=== PATIENT | female | born 1960 | race Caucasian/White ===

== ENCOUNTER 2017-02-06 20:00 | Inpatient (IN) | payer SELFPAY ==
[~2017-02-06] VITALS: Ht 152.4 cm; Wt 40.2 kg
[2017-02-06] MEDS ORDERED: HALOPERIDOL LACTATE 5 MG/ML 1 ML VIAL IM STA (21:23)
[2017-02-06] MEDS ORDERED: LORAZEPAM 2 MG/ML 1 ML VIAL IM STA (21:23)
[2017-02-06 21:55] LABS: PREG INTERNAL NEGATIVE QC NEG CLEAR BACKGROUND; PREG INTERNAL POSITIVE QC POS CONTROL LINE
[2017-02-06 22:17] LABS: BENZODIAZEPINE, URINE NEG (NEG); COCAINE,URINE NEG (NEG); PHENCYCLIDINE, URINE NEG (NEG)
[2017-02-06 22:47] LABS: MEAN CELL VOLUME 91.7 fL (80-100); MEAN CORPUSCULAR HEMOGLOBIN 32.3 pg (25-34); MEAN CORPUSCULAR HGB CONC 35.2 g/dl (32-36); MEAN PLATELET VOLUME 9.4 fL (7.4-10.4); PLATELET COUNT 270 K/uL (130-400); WHITE BLOOD COUNT 7.55 K/uL (4.8-10.8)
[2017-02-06 23:07] LABS: ALT/SGPT 23 U/L (12-78); BLOOD UREA NITROGEN 14 mg/dl (7-18); BUN/CREATININE RATIO 15.6 (10-20); CALCIUM 8.7 mg/dl (8.5-10.1); CARBON DIOXIDE 27 mmol/L (21-32); CHLORIDE 110 mmol/L (98-107); GLUCOSE 96 mg/dl (70-99); POTASSIUM 3.3 mmol/L (3.5-5.1); SODIUM 143 mmol/L (136-145)
[2017-02-06 23:08] LABS: ACETAMINOPHEN < 2 ug/ml (10-30)
[2017-02-06 23:18] LABS: ALKALINE PHOSPHATASE 76 U/L (45-117); AST/SGOT 18 U/L (15-37)
[2017-02-07] MEDS ORDERED: HALOPERIDOL LACTATE 5 MG/ML 1 ML VIAL ONE ×2 (00:12→12:49)
[2017-02-07] MEDS ORDERED: LORAZEPAM 2 MG/ML 1 ML VIAL ONE ×2 (00:12→12:48)
--- NOTE | 2017-02-07 01:33 | EMERGENCY ROOM VISIT NOTE ---
History Report prepared by Ti: Lien Ireland Under the Supervision of: Dr. Juan F Roger M.D. First contact with patient: 20:33 Chief Complaint: MENTAL HEALTH EVALUATION History of Present Illness The patient is a 56 year old female who presents to the Emergency Room with complaints of persistent abnormal behavior starting HEARING SCREENER. The patient was at the [facility] with the [employer] workers. They brought her to the ED because she was acting strangely and making strange statements, such as saying that she is a "black market baby" and that she was struck by lightning. The police were called because she did not want to enter the ED. She states that she is unsure why she was brought here and was under the impression that she was being taken to a new job. She reports that she has been coughing. She denies any fever. She denies any history of medical problems or mental health problems. She has had low iron in the past. She denies being . She reports that she has been applying horse penicillin to her teeth to prevent infection although she has no pain. She says she does this periodically. She denies any headache or chest pain or shortness of breath. She denies homicidal or suicidal ideation. Source of History: patient, nursing staff History Limited By: poor cooperation Onset: HEARING SCREENER Position: other (mental health) Quality: other (abnormal behavior) Timing: other (persistent) Associated Symptoms: + cough, No fevers Review of Systems Limited ROS secondary to poor cooperation. Past Medical & Surgical Medical Problems: (1) No significant past medical history Family History No pertinent family history stated. Social History Smoking Status: Current Every Day Smoker Current/Historical Medications Unable to Obtain Active Prescriptions or Reported Meds Physical Exam Vital Signs Date Time Temp Pulse Resp B/P (MAP) Pulse Ox O2 Delivery O2 Flow Rate FiO2 02/06/17 22:19 91 18 122/78 97 Room Air 02/06/17 20:17 37.0 96 18 139/79 97 Room Air Physical Exam Constitutional: Vital signs reviewed. Eyes: Pupils are equal round reactive to light. Conjunctiva are noninjected. ENT: Pharynx is clear without erythema or exudate. Mucous membranes are moist. Neck supple without meningeal signs. Respiratory: Clear to auscultation bilaterally. Breath sounds are equal bilaterally. Cardiovascular: Regular rate and rhythm. No rubs or gallops. GI: Soft, nondistended and nontender. Bowel sounds are present. Musculoskeletal: No peripheral edema. No lower extremity tenderness. Integumentary: No cyanosis. Neurological: The patient is awake and alert. No focal deficits. Psychiatric: Manic, tangential, poor insight, delusional, pressured speech, shouting at times. Medical Decision & Procedures Laboratory Results 02/06/17 22:31 02/06/17 22:31 Test 02/06/17 20:15 02/06/17 22:31 Urine Test NEG (NEG) Urine Opiates Screen NEG (NEG) Urine Methadone, Qualitative NEG (NEG) Urine Barbiturates NEG (NEG) Urine Phencyclidine (PCP) Level NEG (NEG) Ur Amphetamine/Methamphetamine NEG (NEG) MDMA (Ecstasy) Screen NEG (NEG) Urine Benzodiazepines Screen NEG (NEG) Urine Cocaine Metabolite NEG (NEG) Urine Marijuana (THC) NEG (NEG) Red Blood Count 4.80 M/uL (4.2-5.4) Mean Corpuscular Volume 91.7 fL (80-100) Mean Corpuscular Hemoglobin 32.3 pg (25-34) Mean Corpuscular Hemoglobin Concent 35.2 g/dl (32-36) RDW Standard Deviation 46.7 fL (36.4-46.3) RDW Coefficient of Variation 13.8 % (11.5-14.5) Mean Platelet Volume 9.4 fL (7.4-10.4) Anion Gap 6.0 mmol/L (3-11) Est Creatinine Clear Calc Drug Dose 49.5 ml/min Estimated GFR () 82.3 Estimated GFR (Non- 71.0 BUN/Creatinine Ratio 15.6 (10-20) Calcium Level 8.7 mg/dl (8.5-10.1) Total Bilirubin 0.2 mg/dl (0.2-1) Direct Bilirubin < 0.1 mg/dl (0-0.2) Aspartate Amino Transf (AST/SGOT) 18 U/L (15-37) Alanine Aminotransferase (ALT/SGPT) 23 U/L (12-78) Alkaline Phosphatase 76 U/L (45-117) Total Protein 7.1 gm/dl (6.4-8.2) Albumin 3.6 gm/dl (3.4-5.0) Thyroid Stimulating Hormone (TSH) 2.260 uIu/ml (0.300-4.500) Salicylates Level 4.1 mg/dl (2.8-20) Acetaminophen Level < 2 ug/ml (10-30) Ethyl Alcohol mg/dL < 3.0 mg/dl (0-3) Laboratory results as reviewed by me. ED Course 2044: The patient was evaluated in room A8. A complete history and physical exam was performed. 2117: I reevaluated the patient. She is becoming increasingly manic and uncooperative. I spoke to the [employer] people who say that they found her sleeping in a truck in [place] and brought her to [place] presumably to have her work here, but she became increasingly agitated so they brought her to the ED. 0011: The patient is refusing the chest x-ray and becoming more belligerent and throwing things around the room. The nurse will give Haldol and Ativan. 0058: The patient became more compliant when security came and did not require medication. She is currently sleeping. 0130: The patient was signed out to Dr. Anton at the end of my shift. Medical Decision This is a 56-year-old female brought in for mental health evaluation. I did perform a limited focused review of portions of the patient's old chart on the electronic medical record. The patient has had no prior visits. I did evaluate the patient as noted above. The patient is presenting with manic behavior. She is tangential with pressured speech. She appears delusional with poor insight and judgment. She apparently was found in the truck of the [employer] in [place] who then brought her here to [facility] for the [facility]. She has nowhere to live at this time. She states that if she left here she would get on the first truck and sell herself for sex. She is making bizarre statements about the FBI. She is aggressive at times. She was able to be calmed down verbally. I did order Haldol and Ativan but she did not require it as each time she would calm down to some degree. I did order and review the patient's blood work as noted in the electronic medical record. I did order a chest x-ray as the patient has been coughing. I cannot get further details about her cough and she is not cooperative. Her lungs are clear to auscultation bilaterally. She absolutely refused chest x- ray because of radiation exposure. We could not convince her to get a chest x- ray and she became very upset when asked again for the x-ray. She was therefore medically cleared and evaluated by mental health. The mental health workers felt that she does require inpatient psychiatric care. She would not sign in voluntarily and therefore a 302 petition was filled out. I did sign the 302 as I did feel she was severely mentally ill and required inpatient psychiatric care. She is currently waiting for bed placement. The patient was signed out to Dr. Anton. Medication Reconcilliation Current Medication List: was personally reviewed by me Blood Pressure Screening Patient's blood pressure: Elevated blood pressure Blood pressure disposition: Referred to PCP Impression Primary Impression: Thought disorder Additional Impression: Cough Scribe Attestation The scribe's documentation has been prepared under my direct and personally reviewed by me in its entirety. I confirm that the note above accurately reflects all work, treatment, procedures, and medical decision making performed by me. Departure Information Dispostion Still a Patient Prescriptions Unable to Obtain Active Prescriptions or Reported Meds Patient Instructions [facility] Problem Qualifiers
--- NOTE | 2017-02-07 02:58 | EMERGENCY ROOM VISIT NOTE ---
ED Visit Note First contact with patient: 02:04 This case was signed out to me at change of shift by Dr. Roger. We are currently awaiting bed placement. 0345: The bed search has been suspended. It'll resume in the morning. The patient is currently sleeping at this time. She does not take any routine medications. The case will be signed out to Dr. Toscano at change of shift this morning awaiting bed placement.
[2017-02-07] MEDS ORDERED: BISMUTH SUBSALICYLATE PER ML OMNICELL CHARGE PO PRN (12:15)
[2017-02-07] MEDS ORDERED: hydrOXYzine HCL 25 MG TAB PO PRN ×2 (12:15)
[2017-02-07] MEDS ORDERED: MAGNESIUM HYDROXIDE SUSP 30 ML UDC PO PRN (12:15)
[2017-02-07] MEDS ORDERED: HALOPERIDOL LACTATE 5 MG/ML 1 ML VIAL IM PRN (12:15)
[2017-02-07] MEDS ORDERED: ALUMINUM/MAGNESIUM SUSP 30 ML UDC PO PRN (12:15)
[2017-02-07] MEDS ORDERED: HALOPERIDOL 5 MG TAB PO PRN (12:15)
[2017-02-07] MEDS ORDERED: ACETAMINOPHEN 325 MG TAB PO PRN (12:15)
[2017-02-07] MEDS ORDERED: SODIUM CHLORIDE 0.65% NA SOLN 45 ML (OCEAN) PRN (12:15)
[2017-02-07 12:40] VITALS: O2SAT 98
--- NOTE | 2017-02-07 13:23 | Psychiatric History & Physical ---
History Date of Service Feb 07, 2017. Identifying Data Leana Wiggins is a 56-year-old female from [place] who was brought to the ED by [employer] workers because she was acting and talking bizarrely. She is admitted to our unit on a 302 involuntary commitment due to inability to care for herself due to psychosis. Chief Complaint "If you aint my family, you can just get out of here.". History of Present Illness The patient is a 56 yo female who was brought to the ER by the [employer] workers from the [facility] where she was saying bizarre things and behaving bizarrely. In the ER she refused all medications and was intermittantly agitated, swearing and throwing things. Upon being brought to our unit she refused to participate in an interview, was yelling swearing saying that the food in the ER was poisoned, that she wasn't going to take any medications. Her conversation was rambling and disjointed, talking about a daughter, needing to make money at the [facility]. She was throwing things at the guards and would not follow simple commands to calm down and so she was injected with Haldol 5 mg. and Ativan 1 mg. IM. We have no history other than the [employer] workers reported to the ED staff that they discovered her in one of their trucks at the [facility]. She agreed to work for them and so they took her with them to the [facility]. After they got there she was talking about being tracked by the [facility], being struck by lightening, and being (negative). When they brought her to the ED she refused to come in and was wandering in the parking lot, so the police were called and she was brought in on a 302 warrant. the patient was injected at 1250. She has been observed walking and talking in her room without difficulty. There is no evidence of injury. She remains angry , yelling toward the nurses station, saying we cannot keep her here. She only becomes more agitated if you approach her and so we are giving her some time and space to calm down. Past Psychiatric History Prior Psych Hospitalizations: none (unable to obtain due to agitation) Access to a Gun: No (None in belongings. Unable to determine beyond this due to agitation) Additional Notes Unable to obtain information due to agitation, paranoia Past Medical/Surgical History Unable to obtain due to condition Home Medications Unable to Obtain Active Prescriptions or Reported Meds Family History Unable to obtain due to agitation and condition Alcohol Use Alcohol Use In Past 12 Months: No Unable to obtain due to condition Smoking Use Smoking Status: Current Every Day Smoker Unable to obtain due to agitation and condition Personal History Lives in: [place] per reports Additional Comments: Unable to obtain due to condition Examination Physical Examination Exam performed by Dr. Roger in the ED last night has been reviewed and accepted as medical clearance for our unit. Vital Signs Vital Signs Past 12 Hours Date Time Temp Pulse Resp B/P (MAP) Pulse Ox O2 Delivery O2 Flow Rate FiO2 02/07/17 12:40 94 18 117/66 98 02/07/17 09:06 90 18 98/54 98 Room Air Laboratory Results Last 24 Hours Test 02/06/17 20:15 02/06/17 22:31 Urine Test NEG Urine Opiates Screen NEG Urine Methadone, Qualitative NEG Urine Barbiturates NEG Urine Phencyclidine (PCP) Level NEG Ur Amphetamine/Methamphetamine NEG MDMA (Ecstasy) Screen NEG Urine Benzodiazepines Screen NEG Urine Cocaine Metabolite NEG Urine Marijuana (THC) NEG White Blood Count 7.55 K/uL Red Blood Count 4.80 M/uL Hemoglobin 15.5 g/dL Hematocrit 44.0 % Mean Corpuscular Volume 91.7 fL Mean Corpuscular Hemoglobin 32.3 pg Mean Corpuscular Hemoglobin Concent 35.2 g/dl RDW Standard Deviation 46.7 fL RDW Coefficient of Variation 13.8 % Platelet Count 270 K/uL Mean Platelet Volume 9.4 fL Sodium Level 143 mmol/L Potassium Level 3.3 mmol/L Chloride Level 110 mmol/L Carbon Dioxide Level 27 mmol/L Anion Gap 6.0 mmol/L Blood Urea Nitrogen 14 mg/dl Creatinine 0.90 mg/dl Est Creatinine Clear Calc Drug Dose 49.5 ml/min Estimated GFR () 82.3 Estimated GFR (Non- 71.0 BUN/Creatinine Ratio 15.6 Random Glucose 96 mg/dl Calcium Level 8.7 mg/dl Total Bilirubin 0.2 mg/dl Direct Bilirubin < 0.1 mg/dl Aspartate Amino Transf (AST/SGOT) 18 U/L Alanine Aminotransferase (ALT/SGPT) 23 U/L Alkaline Phosphatase 76 U/L Total Protein 7.1 gm/dl Albumin 3.6 gm/dl Thyroid Stimulating Hormone (TSH) 2.260 uIu/ml Salicylates Level 4.1 mg/dl Acetaminophen Level < 2 ug/ml Ethyl Alcohol mg/dL < 3.0 mg/dl Mental Examination During interview pt is: uncooperative Appearance: disheveled Eye contact is: poor Motor behavior is: psychomotor agitation (agitation, yelling and throwing things) Speech: is pressured, loud Affect: angry Mood is: angry Thought process: tangential, incoherent Thought content: paranoid Hallucinations: other (does not appear to be responding to internal stimuli) Cognition: other (unable to assess due to agitation) Intelligence estimated to be: other (unable to assess) Insight: severely impaired Judgement: severely impaired Impression / Recommendations Impression 56 yo female, with unknown history, brought to the ED by the [facility] workers due to bizarre behaviors. We know she is from [place], but no med or psychiatric information available and the patient is agitated, paranoid and uncooperative. She required Haldol 5 mg. and Ativan 1 mg. IM due to out of control behaviors putting she and others at risk of harm. We will give her some time to calm down , allow the meds to work and attempt again to get some information. She is here on a 302, and will likely need a 303 which we will need to file for tomorrow, Thursday 02/08. Risk Factors Assessment : Yes Recommendations (1) Psychosis 02/07 - Q 15 min checks for safety - Excuse from group programming until able to be appropriate - Continue to try to obtain information from the patient or family members if we can identify one - She is here on a 302. We will need to file for a 303 tomorrow - Continue Haldol and ativan prn. Will also schedule 5 mg. HS tonight. - We are unable to obtain allergy information and so must be alert to any adverse reactions to meds - Reality orientation - CPT Code Initial Hospital Care: [id number]
[2017-02-07] MEDS ORDERED: PATIENT'S ALLERGY INFO NEEDS ENTERED SCH (13:30)
[2017-02-07] MEDS ORDERED: LORAZEPAM 2 MG/ML 1 ML VIAL IM PRN (13:30)
[2017-02-07 14:05] VITALS: BP 117/66; TEMP 37; BMI 21.5
--- NOTE | 2017-02-07 15:48 | EMERGENCY ROOM VISIT NOTE ---
ED Visit Note Patient signed out to me at change of shift by Dr. Marlen Rod History and physical verified by me. Patient was accepted by 3 S. without further incident.
[2017-02-07] MEDS ORDERED: HALOPERIDOL 5 MG TAB PO SCH (21:00)
--- NOTE | 2017-02-08 09:38 | Psychiatric Progress Notes ---
Progress Note Date of Service Feb 08, 2017. Interval History 56 yo female admit brought to ED 02/06 on 302 petition by police. 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 She was agitated in ED, throwing food at police and appeared quite disheveled and extremely thin (inability to care for self due to psychosis). Chief Complaint "hospitals are for people that break legs, your meds and food are poison". Subjective Patient was seen & assessed interval progress reviewed with Treatment Team. Received 1 dose of IMs as documented yesterday, unable to take PO Haldol last hs as sleeping for past 18 hours. Poor PO intake. This am she is resistant to care and refusing meals stating it is her right to fast and she won't reveal why as she has right under the FBI Information Act. 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 She purposely avoids eye contact. Review of Systems Patient is unable to complete due to her psychosis. Sleep Information Total Hours of Sleep: 16.50 Meal Information Percent of Dinner Consumed: 0 Mental Status Exam During interview pt is: uncooperative Appearance: disheveled Eye contact is: poor Motor behavior is: no abnormal motor movements Speech: is pressured, loud Affect: angry Mood is: angry Thought process: tangential, incoherent Thought content: paranoid, delusions Suicidal thought are: denied (but won't really answer/contract) Homicidal thoughts are: denied Hallucinations: other (does not appear to be responding to internal stimuli) Cognition: other (unable to assess due to agitation) Intelligence estimated to be: other (unable to assess) Insight: severely impaired Judgement: severely impaired Impression 56 yo female, with unknown history, brought to the ED by the [employer] due to bizarre behaviors. We know she is from [place], but no med or psychiatric information available and the patient is agitated, paranoid and uncooperative. She required Haldol 5 mg. and Ativan 1 mg. IM due to out of control behaviors putting she and others at risk of harm. Continued Inpatient Care Continued inpatient hospitalization is medically necessary for ongoing monitoring and safety on 302 involuntary commitment, 303 petition filed . A private room remains medically necessary for the safety of self and others given severity of psychosis. Plan (1) Psychosis 02/07 - Q 15 min checks for safety - Excuse from group programming until able to be appropriate - Continue to try to obtain information from the patient or family members if we can identify one - She is here on a 302. We will need to file for a 303 tomorrow - Continue Haldol and ativan prn. Will also schedule 5 mg. HS tonight. - We are unable to obtain allergy information and so must be alert to any adverse reactions to meds - Reality orientation 02/08 --unclear if disorganization solely psychotic disorder or driven by mixed aguilar. Needs close monitoring of I&O and additional labs in am. Will offer Zyprexa Zydis 5 mg this hs as dissolvable and may be easier to administer than PO Haldol. It is my medical opinion that the patient's psychosis is placing her at significant risk of within the next 30 days due to inability to eat (delusions she is being poisoned) and inability to care for self based on circumstances surrounding her hospitalization. If she continues to refuse psychiatric medications, it is medically necessary that meds be given over objection. Will ask Dr. Hess to provide 2nd opinion as covering provider on . 303 paperwork completed. Visit Code E&M Code: 16871 Risk Factors Assessment : Yes Data Vital Signs Last 24 Hrs: Date Time Temp Pulse Resp B/P (MAP) Pulse Ox O2 Delivery O2 Flow Rate FiO2 02/07/17 14:05 37.0 18 117/66 02/07/17 12:40 94 18 117/66 98 Meds Administered Last 24 Hrs: Meds Administered (Past 24Hrs) Medications (Trade) Dose Ordered Sig/Shilpa Route Start Time Stop Time Status Last Admin Dose Admin Haloperidol Lactate (Haldol Inj) 5 mg Q4 PRN IM 02/07/17 12:15 03/09/17 12:14 02/07/17 12:50 5 MG Lorazepam (Ativan Inj) 1 mg Q4H PRN IM 02/07/17 13:30 03/09/17 13:29 02/07/17 12:50 1 MG
[2017-02-08] MEDS ORDERED: BENZTROPINE MESYLATE 1 MG TAB PO PRN (09:45)
[2017-02-08] MEDS ORDERED: BENZTROPINE MESYLATE 1 MG/ML 2 ML AMP IM PRN (09:45)
[2017-02-08] MEDS ORDERED: LORAZEPAM 1 MG TAB PO PRN (09:45)
[2017-02-08] MEDS ORDERED: OLANZAPINE ZYDIS 5 MG ORALLY DIS. TAB PO PRN (10:15)
[2017-02-08 10:47] VITALS: BP 116/72; PULSE 74
[2017-02-08] MEDS ORDERED: OLANZAPINE ZYDIS 5 MG ORALLY DIS. TAB PO SCH (22:00)
[2017-02-09 07:02] VITALS: BP_SYST 117; BP_SYST 125; BP_DIAS 75; BP_DIAS 82; PULSE 62; PULSE 69; TEMP 36.6
[2017-02-09 07:09] VITALS: Ht 152.4 cm; Wt 40.2 kg
--- NOTE | 2017-02-09 07:55 | Psychiatric Progress Notes ---
Progress Note Date of Service Feb 09, 2017. Interval History 56 yo female admit brought to ED 02/06 on 302 petition by police. 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 She was agitated in ED, throwing food at police and appeared quite disheveled and extremely thin (inability to care for self due to psychosis). Chief Complaint "Are you the doctor? You're not my doctor, I got a friend got a lab at her house, I hang out with doctors and stuff". Subjective Patient was seen & assessed interval progress reviewed with Nursing. She slept 18 hours her first night in the hospital, after getting IMs of Haldol and Ativan for agitation and psychosis, and yesterday was awake, agitated and psychotic, paranoid, and refused medications and food at times. She was informed of the 303 hearing and did not appear to understand it. She did eat some yesterday, and was focused on food, at times saying it was poisoned. She was paranoid of peers, got agitated, and refused prn medications, but was eventually able to be redirected. Dr. Lopez saw her and recommended medications over objection. She is hyperverbal, nonsensical at times, talks about being struck by lightening, black market babies, and the FBI. She has not yet been able to provide any historical information or explain why she is in [place] or how she got here. Today, she was seen in her room, where she immediately became agitated, yelling and swearing. She is a very limited historian, is extremely tangential and angry. She refused her blood draw for lab work this morning, and when attempting to explain to her the reasons that this is needed (low potassium on admission and poor oral intake, refusing multiple meals since admission), she interrupts and screams "talking cares about my electrolytes!" She talks in a nonsensical fashion about having a friend who has a lab at her house, saying she'll get lab work done there, then talking about cousins with a $1 million home, and losing her things on the [employer] bus. She continues to refuse medications, and refuses to answer questions about her psychiatric history. 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 Explained that if she will not accept medication and cannot calm down, she may receive injectable medications. She continued to yell and started dumping all of her food in the garbage can, stating that she wasn't going to eat anything while she was here. She then came to the nurse's station yelling and demanding to be given sugar, stating "sugar calls me down, don't you know that? I have my own doctors!" Her case was reviewed with Dr. Lopez, and security was called to administer medications over objection if needed, and to allow the senior treasury analyst to draw blood for labs. She required a manual hold in order to have blood drawn. She agreed to take olanzapine, but then spit it out, so a second dose was administered. Sleep Information Total Hours of Sleep: 5.00 Meal Information Percent of Breakfast Consumed: 0 Percent of Lunch Consumed: 100 Percent of Dinner Consumed: 100 Mental Status Exam During interview pt is: uncooperative (agitated, yelling and swearing, angry and inappropriate behavior) Appearance: disheveled, other (appears older than stated age, very thin, disheveled and unkempt) Eye contact is: poor Motor behavior is: psychomotor agitation (throwing food in the garbage can, up and down out of her seat, pacing around the room) Speech: is pressured, loud, other (swearing and making derogatory statements to staff) Affect: angry, constricted Mood is: angry Thought process: tangential, incoherent Thought content: paranoid, delusions (persecution, poisoning) Hallucinations: other (patient extremely agitated and would not answer questions about SI, HI, or hallucinations) Cognition: other (memory and attention are impaired by psychosis) Intelligence estimated to be: other (unable to assess) Insight: severely impaired Judgement: severely impaired Impression 56 yo female, with unknown history, brought to the ED by the [employer] workers due to bizarre behaviors. We know she is from [place], but no medical or psychiatric history is available and the patient is agitated, paranoid and uncooperative. She required Haldol 5 mg. and Ativan 1 mg. IM due to out of control behaviors putting she and others at risk of harm on 02/07, and remains agitated, paranoid and uncooperative. She is refusing medications and at times refuses food. She refused blood draws for labwork today, and has been started on medications over objection after being seen by 2 physicians. She required manual hold in order to have blood drawn today. A 303 commitment hearing is scheduled for Saturday. Continued Inpatient Care Continued inpatient hospitalization is medically necessary for ongoing monitoring and safety on 302 involuntary commitment, 303 petition filed . A private room remains medically necessary for the safety of self and others given severity of psychosis. Plan (1) Psychosis 02/07 - Q 15 min checks for safety - Excuse from group programming until able to be appropriate - Continue to try to obtain information from the patient or family members if we can identify one - She is here on a 302. We will need to file for a 303 tomorrow - Continue Haldol and ativan prn. Will also schedule 5 mg. HS tonight. - We are unable to obtain allergy information and so must be alert to any adverse reactions to meds - Reality orientation 02/08 --unclear if disorganization solely psychotic disorder or driven by mixed aguilar. Needs close monitoring of I&O and additional labs in am. Will offer Zyprexa Zydis 5 mg this hs as dissolvable and may be easier to administer than PO Haldol. It is my medical opinion that the patient's psychosis is placing her at significant risk of within the next 30 days due to inability to eat (delusions she is being poisoned) and inability to care for self based on circumstances surrounding her hospitalization. If she continues to refuse psychiatric medications, it is medically necessary that meds be given over objection. Will ask Dr. Hess to provide 2nd opinion as covering provider on . 303 paperwork completed. 02/09 --patient extremely agitated and uncooperative, disorganized, tangential, and unable to provide history or participate appropriately in the interview. She is at times refusing food, and refused a blood draw this morning to recheck low potassium and elevated chloride. She is unable to engage in a discussion of the risks of refusing treatment, and remains grossly psychotic. Differential includes primary thought disorder versus psychotic aguilar. I agree with Dr. Lopez's assessment that her current symptoms place her at risk of , disability or serious debilitation within the next 30 days of untreated, and her behavior also places others at risk, as she is paranoid and believes she is being poisoned, and has been quite agitated and uncooperative here. A 303 commitment hearing is scheduled for Saturday, and we will start medications over objection, with Haldol and Ativan IM ordered if she refuses the oral olanzapine. Will also increase olanzapine to 5 mg twice a day. Continue to attempt to gather and background information and identify friends or family who could provide collateral information. (2) Hypokalemia Potassium was 3.3 in the emergency room on 02/07/2017. 02/09 - patient refused blood draw to recheck potassium, and was unable to engage in a discussion of the risks of refusing treatment. Security were present and she required a manual hold in order to draw blood. She is intermittently refusing meals. Potassium normalized, 4.6 today. Visit Code E&M Code: 39216 Risk Factors Assessment : Yes Data Vital Signs Last 24 Hrs: Date Time Temp Pulse Resp B/P (MAP) Pulse Ox O2 Delivery O2 Flow Rate FiO2 02/09/17 07:02 36.6 62 18 117/75 69 125/82 02/08/17 10:47 74 16 116/72 Meds Administered Last 24 Hrs: Meds Administered (Past 24Hrs) Medications (Trade) Dose Ordered Sig/Shilpa Route Start Time Stop Time Status Last Admin Dose Admin Haloperidol Lactate (Haldol Inj) 5 mg Q4 PRN IM 02/07/17 12:15 03/09/17 12:14 02/07/17 12:50 5 MG Lorazepam (Ativan Inj) 1 mg Q4H PRN IM 02/07/17 13:30 03/09/17 13:29 02/07/17 12:50 1 MG
[2017-02-09] MEDS ORDERED: OLANZAPINE ZYDIS 5 MG ORALLY DIS. TAB PO SCH (09:00)
[2017-02-09] MEDS ORDERED: LORAZEPAM 2 MG/ML 1 ML VIAL IM PRN ×2 (10:00→17:00)
[2017-02-09] MEDS ORDERED: HALOPERIDOL LACTATE 5 MG/ML 1 ML VIAL IM PRN ×2 (10:00→17:00)
[2017-02-09 10:39] LABS: BUN/CREATININE RATIO 18.2 (10-20); CALCIUM 8.5 mg/dl (8.5-10.1); CREATININE 0.72 mg/dl (0.60-1.20); POTASSIUM 4.6 mmol/L (3.5-5.1)
[2017-02-09] MEDS: OLANZAPINE ZYDIS 5 MG ORALLY DIS. TAB PO SCH (16:52)
--- NOTE | 2017-02-09 17:29 | Psych Management Progress Note ---
Psychiatry Miscellaneous Date of Service: Feb 09, 2017. Patient escalated when given her scheduled olanzapine, spit it out, and was aggressive towards staff, charging them, resulting in seclusion in the [facility]. Security responded and she then required IM Haldol and Ativan, which are ordered for refusal of oral olanzapine. This required a brief manual hold. On this physician's arrival to the unit, she was asleep on her bed, unable to participate in an interview.
[2017-02-10 07:03] VITALS: BP_SYST 105; BP_SYST 109; BP_DIAS 69; BP_DIAS 70; PULSE 66; PULSE 71; TEMP 36.8
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
[2017-02-10] MEDS: OLANZAPINE ZYDIS 5 MG ORALLY DIS. TAB PO SCH ×2 (08:40→15:37)
[2017-02-10] MEDS ORDERED: BENZTROPINE MESYLATE 1 MG TAB PO PRN (13:30)
[2017-02-11] MEDS: OLANZAPINE ZYDIS 5 MG ORALLY DIS. TAB PO SCH ×2 (06:53→16:57)
[2017-02-11 07:02] VITALS: BP_SYST 100; BP_SYST 109; BP_DIAS 62; BP_DIAS 68; PULSE 72; PULSE 78; TEMP 36.6
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
[2017-02-12] MEDS: OLANZAPINE ZYDIS 5 MG ORALLY DIS. TAB PO SCH ×2 (07:02→16:55)
[2017-02-12 07:04] VITALS: BP_SYST 106; BP_DIAS 54; BP_DIAS 68; PULSE 63; PULSE 76; TEMP 36.5
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
[2017-02-13 07:01] VITALS: BP_SYST 108; BP_SYST 109; BP_DIAS 64; BP_DIAS 69; PULSE 79; PULSE 84; TEMP 36.5
[2017-02-13] MEDS: OLANZAPINE ZYDIS 5 MG ORALLY DIS. TAB PO SCH ×2 (07:17→17:47)
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
[2017-02-14 06:47] VITALS: BP_SYST 108; BP_SYST 112; BP_DIAS 70; BP_DIAS 73; PULSE 65; PULSE 69; TEMP 36.4
[2017-02-14] MEDS: OLANZAPINE ZYDIS 5 MG ORALLY DIS. TAB PO SCH ×2 (09:00→16:51)
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
[2017-02-15 06:58] VITALS: BP_SYST 104; BP_SYST 111; BP_DIAS 69; BP_DIAS 72; PULSE 71; PULSE 79; TEMP 36.7
[2017-02-15] MEDS: OLANZAPINE ZYDIS 5 MG ORALLY DIS. TAB PO SCH ×2 (09:19→17:41)
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
--- NOTE | 2017-02-15 16:43 | Psychiatric Progress Notes ---
Psychiatric Progress Note Date of Service Feb 15, 2017. Notes I participated in treatment team this am, patient is significantly improved compared to my first contact with her 1 week ago. She is eating and attending to her ADLs. She consistently denies SI/HI/bess and although she may benefit from additional inpatient treatment, she is no longer meeting criteria for involuntary commitment. Staff have spoken with her "kin" and he is willing to pick her up from the bus station and staff to provide contact info for local MH/ ID. She is currently stating that she will not take medication after discharge but will be provided a prescription in case she changes her mind. She understands that that is our recommendation. She remains sexually inappropriate in conversation . She doesn't plan to reside in the area and so we are not pursuing any outpatient commitment. She plans to return home to [place] and that is the most desirable solution. Commitments cannot be transferred across state lines. Any factors that can be mitigated during her stay have been addressed and case was reviewed with nursing clinical director Brigid Meek. The hospital is arranging for a bus ticket. She will be discharged when appropriate transportation is arranged.
[2017-02-15] MEDS ORDERED: ZYP5 PO (16:45)
--- NOTE | 2017-02-15 16:50 | Discharge Instructions ---
Discharge Information Report Includes Report will include the: Discharge Instructions & Summary Admission Admission Date / Time: Feb 07, 2017 at 12:15 Reason for Admission: Psychosis Discharge Discharge Diagnosis / Problem: unspecified psychotic disorder Condition at Discharge: improved Discharge Goals Goal(s): Improve function, Improve disease control Activity Recommendations Activity Limitations: resume your previous activity . Instructions / Follow-Up Instructions / Follow-Up . SPECIAL CARE INSTRUCTIONS: 1. Follow through with your scheduled aftercare appointments. If unable to keep an appointment, please call to reschedule. 2. Take your medication only as prescribed. Medication should not be changed or stopped without the approval of your doctor. In the event of worsening symptoms or concerns about side effects, contact your doctor immediately. 3. Utilize new healthy coping skills, anger management skills, and stress management skills learned during your hospitalization. Journal feelings and process them with a support person. Identify stressors or situations that may result in relapse, deterioration or inappropriate behaviors and develop a plan to deal with those issues. 4. If your coping skills are ineffective and you are in crisis, contact your outpatient providers for direction. If unable to reach your providers, please call the CAN HELP LINE AT or go to the closest Emergency Room. 5. Avoid alcohol and un-prescribed drugs. 6. You have been provided with the Mental Health Advance Directives Pamphlet for your review. AFTERCARE APPOINTMENTS: * Please call your insurance company prior to your scheduled appointment to confirm your aftercare providers are covered. Take your insurance information to your appointments. . Discharge / Aftercare Planning Primary Care Physician: Name: None Psychiatrist: Name: Yatra Appointment Notes: [address] [place] [address] ROSANNA Hagen Therapist: Name Of Therapist: [facility] 24 [facility] . Follow-Up Care Plan for Follow-Up Care: We encourage you to continue your medication and to seek care upon your return to [place]. We do not consider your condition stable but you no longer meet criteria for involuntary commitment in [place]. Stopping medication and failing to continue under the care of a physician is against our medical advice. Current Hospital Diet Patient's current hospital diet: Regular Diet Discharge Diet Recommended Diet: Regular Diet Procedures Procedures Performed: No Pending Studies Pending Studies at Discharge: No Medical Emergencies . Who to Call and When: Medical Emergencies: For questions or emergencies related to your hospital stay, please contact the Inpatient Behavioral Health Unit at [phone]. A neuropsychology medical consultant is on-call 14/01 for the Behavioral Health Unit for emergencies At any time you feel your situation is an emergency, you may also call 911 immediately. . Non-Emergent Contact Non-Emergency issues call your: Primary Care Provider Advance Directives Existing Advance Directive: No Do You Have an Existing Mental: No Existing Living Will: No Existing Power of Wood Finisher: No Advance Directives Info Given: To Pt/S.O. Advance Directives Reason: Declines as Mental Health Visit. Discharge Summary Admission HPI Per the Admitting provider: The patient is a 56 yo female who was brought to the ER by the [employer] workers from the [facility] where she was saying bizarre things and behaving bizarrely. In the ER she refused all medications and was intermittantly agitated, swearing and throwing things. Upon being brought to our unit she refused to participate in an interview, was yelling swearing saying that the food in the ER was poisoned, that she wasn't going to take any medications. Her conversation was rambling and disjointed, talking about a daughter, needing to make money at the [facility]. She was throwing things at the guards and would not follow simple commands to calm down and so she was injected with Haldol 5 mg. and Ativan 1 mg. IM. We have no history other than the [employer] workers reported to the ED staff that they discovered her in one of their trucks at the [facility]. She agreed to work for them and so they took her with them to the [facility]. After they got there she was talking about being tracked by the [facility], being struck by lightening, and being (negative). When they brought her to the ED she refused to come in and was wandering in the parking lot, so the police were called and she was brought in on a 302 warrant. the patient was injected at 1250. She has been observed walking and talking in her room without difficulty. There is no evidence of injury. She remains angry , yelling toward the nurses station, saying we cannot keep her here. She only becomes more agitated if you approach her and so we are giving her some time and space to calm down. Hospital Course (1) Psychosis 02/07 - Q 15 min checks for safety - Excuse from group programming until able to be appropriate - Continue to try to obtain information from the patient or family members if we can identify one - She is here on a 302. We will need to file for a 303 tomorrow - Continue Haldol and ativan prn. Will also schedule 5 mg. HS tonight. - We are unable to obtain allergy information and so must be alert to any adverse reactions to meds - Reality orientation 02/08 --unclear if disorganization solely psychotic disorder or driven by mixed aguilar. Needs close monitoring of I&O and additional labs in am. Will offer Zyprexa Zydis 5 mg this hs as dissolvable and may be easier to administer than PO Haldol. It is my medical opinion that the patient's psychosis is placing her at significant risk of within the next 30 days due to inability to eat (delusions she is being poisoned) and inability to care for self based on circumstances surrounding her hospitalization. If she continues to refuse psychiatric medications, it is medically necessary that meds be given over objection. Will ask Dr. Hess to provide 2nd opinion as covering provider on . 303 paperwork completed. 02/09 --patient extremely agitated and uncooperative, disorganized, tangential, and unable to provide history or participate appropriately in the interview. She is at times refusing food, and refused a blood draw this morning to recheck low potassium and elevated chloride. She is unable to engage in a discussion of the risks of refusing treatment, and remains grossly psychotic. Differential includes primary thought disorder versus psychotic aguilar. I agree with Dr. Lopez's assessment that her current symptoms place her at risk of , disability or serious debilitation within the next 30 days of untreated, and her behavior also places others at risk, as she is paranoid and believes she is being poisoned, and has been quite agitated and uncooperative here. A 303 commitment hearing is scheduled for Saturday, and we will start medications over objection, with Haldol and Ativan IM ordered if she refuses the oral olanzapine. Will also increase olanzapine to 5 mg twice a day. Continue to attempt to gather and background information and identify friends or family who could provide collateral information. 02/10 --continue current meds. 303 tomorrow. 02/11 --303 granted. Continue olanzapine 5mg bid with IM Haldol and Ativan for refusal. Continue to attempt to locate friends or family who can provide collateral and assist the patient to return to her home, although we still do not know where that is. 02/12 --Patient signed ROIs for two male friends, one in [place] and one in [place], and a phone meeting is scheduled - need collateral information and discharge planning. 02/13 --patient states a family member is sending her money on Saturday to buy a bus ticket to go to [place], although at times she says she will just take the money and go to the [employer] [facility]. She is refusing to allow us to arrange aftercare. We still have no past psychiatric history to clarify diagnosis, but her friend indicated she had been through this before. Continue current dose of olanzapine, and continue to reality test. 02/14 --continue current treatment plan. Patient has been able to attend some groups, and is improving. She is struggling with discharge planning, changes her mind frequently, and talked about leaving to buy a bus ticket and then coming back to the hospital for 5 days until her bus leaves. She will need a good plan prior to release. 02/15 - Continue to explore financial and transportation options to get her back home. (2) Hypokalemia Potassium was 3.3 in the emergency room on 02/07/2017. 02/09 - patient refused blood draw to recheck potassium, and was unable to engage in a discussion of the risks of refusing treatment. Security were present and she required a manual hold in order to draw blood. She is intermittently refusing meals. Potassium normalized, 4.6 today. (3) Underweight Admission weight of 115lbs was incorrect. Weight on 02/08 was 84 lbs (BMI 16.4). Checking daily weights and encouraging good PO intake. 02/12 - weight 86 lbs. 02/13 - weight 87 lbs. Risk Factors Assessment : Yes /single/: Yes Higher / Fall in social status: No Health problems: Yes Mental Health Diagnoses: Yes Smoker: Yes Protective Factors Assessment : No Responsible for young children: No Employed: No Stable relationships: No Supportive family: No Good rapport with provider: No Day of Discharge Assessment The patient is significantly improved compared to admission. She is eating and attending to her ADLs. She consistently denies SI/HI/bess and although she may benefit from additional inpatient treatment, she is no longer meeting criteria for involuntary commitment. Staff have spoken with her "kin" and he is willing to pick her up from the bus station and staff to provide contact info for local MH/ID. She is currently stating that she will not take medication after discharge but will be provided a prescription in case she changes her mind. She understands that that is our recommendation. She remains sexually inappropriate in conversation . She doesn't plan to reside in the area and so we are not pursuing any outpatient commitment. She plans to return home to [place] and that is the most desirable solution. Commitments cannot be transferred across state lines. Any factors that can be mitigated during her stay have been addressed and case was reviewed with nursing director Brigid Meek. The hospital is arranging for a bus ticket. She will be discharged when appropriate transportation is arranged. Laboratory Test 02/06/17 20:15 02/06/17 22:31 02/09/17 10:04 Urine Test NEG Urine Opiates Screen NEG Urine Methadone, Qualitative NEG Urine Barbiturates NEG Urine Phencyclidine (PCP) Level NEG Ur Amphetamine/Methamphetamine NEG MDMA (Ecstasy) Screen NEG Urine Benzodiazepines Screen NEG Urine Cocaine Metabolite NEG Urine Marijuana (THC) NEG White Blood Count 7.55 Red Blood Count 4.80 Hemoglobin 15.5 Hematocrit 44.0 Mean Corpuscular Volume 91.7 Mean Corpuscular Hemoglobin 32.3 Mean Corpuscular Hemoglobin Concent 35.2 RDW Standard Deviation 46.7 RDW Coefficient of Variation 13.8 Platelet Count 270 Mean Platelet Volume 9.4 Sodium Level 143 141 Potassium Level 3.3 4.6 Chloride Level 110 110 Carbon Dioxide Level 27 27 Anion Gap 6.0 4.0 Blood Urea Nitrogen 14 13 Creatinine 0.90 0.72 Est Creatinine Clear Calc Drug Dose 49.5 52.0 Estimated GFR () 82.3 107.7 Estimated GFR (Non- 71.0 93.0 BUN/Creatinine Ratio 15.6 18.2 Random Glucose 96 88 Calcium Level 8.7 8.5 Total Bilirubin 0.2 Direct Bilirubin < 0.1 Aspartate Amino Transferase (AST) 18 Alanine Aminotransferase (ALT) 23 Alkaline Phosphatase 76 Total Protein 7.1 Albumin 3.6 Thyroid Stimulating Hormone (TSH) 2.260 Salicylates Level 4.1 Acetaminophen Level < 2 Ethyl Alcohol mg/dL < 3.0 Total Time Total Time Included: examination of the patient, discharge planning, medication reconciliation Tobacco Cessation at Discharge Smoking Status: Unknown if Ever Smoked FDA approved Prescription: non-smoker Antipsychotic Meds Rationale patient refused metabolic screening (lipid panel and fasting blood glucose) during her stay.
--- NOTE | 2017-02-16 09:01 | Psychiatric Progress Notes ---
Psychiatric Progress Note Date of Service Feb 16, 2017. Notes Patient reevaluated this am for discharge as bus ticket available. Patient remains attention seeking in the milieu at times but was not aggressive. She is paranoid re: his daughter wanting to take her pills, etc and most of her fears about her things and safety are likely reality based due to her lifestyle as a wanderer. It's possible that some of her disinhibition could be an atypical presentation of Pick's disease, regardless she has medical decision making capacity and doesn't want further medical work-up or care. She denies SI /HI/bess and does not appear to be responding to internal stimuli. She is circumstantial in her thought processes and difficult to interrupt at times but her thinking is much more organized. Interim progress reviewed with nursing. She no longer meets criteria for inpatient hospitalization on an involuntary commitment. She continues to state she won't take medication but is agreeable to take a short supply of prepackaged medication for the travel. Time spent < 30 min.
[2017-02-16] MEDS: OLANZAPINE ZYDIS 5 MG ORALLY DIS. TAB PO SCH (09:29)
[2017-02-16] MEDS ORDERED: OLANZAPINE ZYDIS 5 MG ORALLY DIS. TAB PO SCH (09:30)
[2017-02-16 09:32] VITALS: BP 124/75; PULSE 97; TEMP 36.7
== END 2017-02-16 13:35 | disposition home or self-care (01) | DRG 885 ==
LOC: C.EDA 20:17 → C.MHU 02-07 12:15
PROVIDERS: ADMIT Psychiatry & Neurology Psychiatry; ATTEND Psychiatry & Neurology Psychiatry
DX: F29 Unspecified psychosis not due to a substance or known physiological condition (principal); Z68.1 Body mass index [BMI] 19.9 or less, adult; E87.6 Hypokalemia; R63.6 Underweight; F17.200 Nicotine dependence, unspecified, uncomplicated; Z59.0 Homelessness